=== PATIENT | female | born 1980 | race African-American/Black ===

== ENCOUNTER 2019-11-28 15:29 | Outpatient (CLI) | payer OTHER ==
--- NOTE | 2019-11-28 16:50 | RAD ---
ACUTE ABDOMINAL SERIES: 11/28/19 PROVIDED CLINICAL HISTORY: Constipation. FINDINGS: The cardiac and mediastinal silhouette is within normal limits. Lungs appear clear. No pleural fluid or pneumothorax apparent. Supine and upright abdominal radiographs demonstrate a normal bowel gas pattern. There is no evidence for pneumoperitoneum. No radiographically apparent urinary tract calculi. Density overlying the cocc yx on the supine radiograph presumably reflects stool within the rectum. IMPRESSION: 1. No evidence for an acute cardiopulmonary process. 2. Nonspecific bowel gas pattern. 3. Dense material overlying the coccyx on the supine examination, presumably reflecting stool wi thin the rectum. POS: [facility]
== END 2019-11-28 15:30 | disposition home or self-care (01) ==
LOC: BICRAD 15:29
PROVIDERS: ATTEND Family Medicine
DX: K59.00 Constipation, unspecified (principal)
CPT/HCPCS: 74022

== ENCOUNTER 2020-01-21 21:36 | Emergency (ER) | payer OTHER ==
[2020-01-21 22:17] LABS: Bacteria/HPF None Seen HPF (None Seen); Bilirubin Negative (Negative); Blood, Urine 2+ (Negative); Clarity Clear (Clear); Glucose, Urine (Dipstick) Normal (Negative); Leukocyte Negative Leu/uL (Negative); Nitrite Negative (Negative); Protein, Urine (Dipstick) Negative (Neg-Trace); Squamous Epithelial 0-3 HPF (0-3); Urobilinogen Normal mg/dL (Less than 2)
[2020-01-21 22:20] LABS: Pregnancy Test - Urine (BHCG) Negative (Negative); Pregu Control Background? CLEAR/WHITE (CLR/WHITE); Pregu Control Bar Appear? YES (CONTROL BAR); Specific Gravity 1.011 (1.002-1.036)
[2020-01-21 22:23] LABS: #Eosinphils 0.1 thou/uL (0.0-0.7); #Lymphocytes 2.4 thou/uL (1.20-3.40); #Monocytes 0.7 thou/uL (0.11-0.59); %Basophils 0.3 % (0.0-1.0); %Eosinophils 0.7 % (0.0-10.0); %Lymphocytes 21.7 % (21.0-51.0); %Monocytes 5.9 % (0.0-10.0); %Neutrophils 71.4 % (42.0-75.0); Hemoglobin 14.4 g/dL (12.0-16.0); Mean Corpuscular HGB CONC 34.2 g/dL (32.0-36.0); Mean Corpuscular Hemoglobin 29.6 pg (27.0-31.0); Mean Corpuscular Volume 86.5 fL (78.0-98.0); Mean Platelet Volume 8.6 fL (7.4-10.4); Platelet Count 334 thou/uL (130-400); RBC Distribution Width 12.7 % (11.5-14.5); Red Blood Cell (RBC) Count 4.88 mill/uL (4.20-5.40); White Blood Cell (WBC) Count 11.2 thou/uL (4.8-10.8)
[2020-01-21] MEDS ORDERED: Morphine 4 MG/ML VIAL ONE ×2 (22:42→22:45)
[2020-01-21 22:43] LABS: ALT (SGPT) 11 U/L (8-55); AST (SGOT) 13 U/L (5-34); Albumin 4.4 g/dL (3.5-5.0); Alkaline Phosphatase 66 U/L (40-110); Anion Gap 12 mmol/L (10-20); BUN (Urea Nitrogen) 10 mg/dL (7.0-18.7); Calc. Creatinine Clearance 0 mL/min (70-130); Calcium 10.2 mg/dL (7.8-10.44); Carbon Dioxide 27 mmol/L (22-29); Chloride 102 mmol/L (98-107); Estimated GFR-MDRD 65; Globulin 3.9 g/dL (2.4-3.5); Glucose 106 mg/dL (70-105); Potassium 3.7 mmol/L (3.5-5.1); Protein, Total 8.3 g/dL (6.0-8.3); Sodium 137 mmol/L (136-145)
--- NOTE | 2020-01-21 23:34 | ULT ---
US Pelvic Transvag W Doppler HISTORY: Abdominal pain, pelvic pain, endometriosis, uterine fibroids, concern for torsion FINDINGS: The uterus measures 10 x 5 x 6 cm with multiple masses consistent with fibroids. The larges t fibroid measures 3.7 cm. The endometrium is not visualized. No definite endometrial fluid is seen. The right ovary measures 7 x 5 x 6.5 cm and the left ovary measures 6 x 3.5 x 6.5 cm. Flow is demonst rated to both ovaries. There is a 5.8 x 4.5 x 4.8 cm complex right ovarian cystic mass. A complex left ovarian cystic mass measures 2.8 x 1.5 x 2.1 cm and is simple cystic left ovarian mass measures 2.9 x 2.1 x 2.7 cm. No free fluid is seen. IMPRESSION: 1. Fibroid uterus 2. Bilateral complex ovarian masses are likely endometriomas. No evidence of ovarian torsion.
== END 2020-01-22 00:24 | disposition home or self-care (01) ==
LOC: ERS 21:36
DX: N83.202 Unspecified ovarian cyst, left side (principal); N83.201 Unspecified ovarian cyst, right side; Z79.891 Long term (current) use of opiate analgesic
CPT/HCPCS: 36415; 76856; 80053; 81003; 81015; 81025; 85025; 86900; 86901; 96374; J2270